=== PATIENT | male | born 1940 | race Caucasian/White ===

== ENCOUNTER 2016-07-17 13:53 | Inpatient (IN) | payer MEDICARE, OTHER ==
--- NOTE | ~2016-07-17 | DS ---
Discharge Summary [address] [place]. [address] NAME: VANCE REESE : 38 STATUS : ADM IN [facility]#: [id number] AGE: 75 ADM/REG DATE : 07/17/16 MR#: [id number] REPORT SERV DATE: 07/20/16 DICTATED BY: VANIA MORALES DATE: 07/20/16 REPORT STATUS : Draft TRANSCRIBED BY: MODMinoo DATE: 07/20/16 ADMISSION DATE: 07/17/2016 DISCHARGE DATE: 07/20/2016 REASON FOR ADMISSION: Dehydration, acute kidney injury, encephalopathy, and urinary tract infection. HISTORY OF PRESENT ILLNESS: Please refer to my history and physical dated 07/17/2016 for complete details regarding the patient's admission. In brief, the patient was admitted to the Hospitalist Service for management of his cystitis, toxic encephalopathy, acute kidney injury, and dehydration. HOSPITAL COURSE: The patient had an uncomplicated hospital course. The patient had a urinalysis done by home health. Urine culture came back as being positive for E coli. His stepdaughter who helps take care of him noticed that the patient was getting dehydrated and more and more confused and less interactive. He does have some baseline dementia that his behavior was not typical for him. He came in, lactic acid was 1.3. ER obtained a CT scan of his brain without contrast, which showed no acute infarction. CBC was fine. BMP showed a creatinine 1.14 with a normal troponin. The patient was started on IV fluids along with Ancef. With the help of IV fluids and Ancef, he became more and more interactive and he was back to his baseline. He did have significant torticollis. Physical Therapy had recommended rehab. He has reached maximal hospitalization and will be discharged to [facility] today in stable condition. Speech Therapy evaluated the patient and did a swallow evaluation and recommended a mechanical soft diet with chopped meat with gravy and thin liquids along with aspiration precautions. DISCHARGE DIAGNOSES: Acute cystitis secondary to E coli, now resolved. Toxic encephalopathy secondary to urinary tract infection and dehydration, now resolved. Alzheimer's dementia, on Aricept and Namenda. Mild acute kidney injury secondary to dehydration. DNR/DNI. PROCEDURES: Include CT scan of the head without contrast. DISCHARGE MEDICATIONS: Include Lipitor 10 mg at bedtime, donepezil 20 mg at bedtime, Namenda XR 28 mg daily, and Ceftin 500 mg twice a day for four days. This with chopped meats with gravy and thin liquids. Along with aspiration precautions. The patient will be discharged to [facility] for rehab. Spending over 30 minutes in discharge planning and coordination of care. DICTATED BY: MD HUEY Dowling/MENG Discharge Summary [address] [address] NAME: VANCE REESE : 38 STATUS : ADM IN [facility]#: [id number] AGE: 75 ADM/REG DATE : 07/17/16 MR#: [id number] REPORT SERV DATE: 07/20/16 DICTATED BY: VANIA MORALES DATE: 07/20/16 REPORT STATUS : Draft TRANSCRIBED BY: MENG DATE: 07/20/16 Vania Morales MD / [id number] CC: MD SHANNON Dowling AMY
--- NOTE | ~2016-07-17 | HP ---
History And Physical [id number] [facility] [place]. [address] NAME: VANCE REESE : 38 STATUS : ADM IN PAT#: [id number] AGE: 75 ADM/REG DATE : 07/17/16 MR#: [id number] REPORT SERV DATE: 07/17/16 DICTATED BY: RODNEY GONZALEZ DATE: 07/17/16 REPORT STATUS : Draft TRANSCRIBED BY: MODL DATE: 07/17/16 DATE OF ADMISSION: 07/17/2016 REASON FOR ADMISSION: Encephalopathy and urinary tract infection. PRIMARY CARE PROVIDER: Edilia Delcid at [facility]. CHIEF COMPLAINT: "My stepdad has been declining for the past month." HISTORY OF PRESENT ILLNESS: 75-year-old white male with a history of known Alzheimer dementia and hyperlipidemia, has been living at home with his and the stepdaughter has been trying to be very active caregiver. The patient is brought to the [facility] ER in the presence of the patient's stepdaughter who is the power of clay digger and has noted that the patient's mental status has declined in the past few weeks, may be the past month. She states that he normally is able to answer questions, sometimes not appropriately. He will make eye contact. He will recognize her and family members. However, she has been feeling that he has been not eating and drinking well becoming dehydrated and weaker with having difficulty taking care of him at home. They do have a home health service currently. The patient's daughter said that about two weeks ago, he had not been eating or drinking and was worried that he was becoming dehydrated, so she took him to the [facility] ER where they were unable to obtain a urinalysis but did give some fluids and sent him home. Home Health was arranged and the home health aide had noticed that his urine was becoming foul smelling and urine culture had been obtained on 07/12/2016, which showed over 100,000 E coli. The patient's stepdaughter says that he has been keeping his head in one position and has not been communicating as much and has been declining since the ER visit and that is what prompted her to come to the ER. She states that he had a temperature of around 99 degrees at most but again is not eating well and has urinary tract infection. Hospice was asked to admit for further evaluation. REVIEW OF SYSTEMS: As per HPI. Otherwise, 10-point systems reviewed and negative. PAST MEDICAL HISTORY: Alzheimer dementia, rather severe and worsening, and hyperlipidemia. PAST SURGICAL HISTORY: None. SOCIAL HISTORY: Lives at home with his and has several children and about seven grandchildren. He is a DNR, does not smoke or drink any alcohol. FAMILY HISTORY: Reviewed and noncontributory. ALLERGIES: NO KNOWN ALLERGIES. MEDICATIONS: Include Namenda, Aricept, and a statin. PHYSICAL EXAMINATION: History And Physical [address] [address] NAME: VANCE REEES : 38 STATUS : ADM IN [facility]#: [id number] AGE: 75 ADM/REG DATE : 07/17/16 MR#: [id number] REPORT SERV DATE: 07/17/16 DICTATED BY: RODNEY GONZALEZ DATE: 07/17/16 REPORT STATUS : Draft TRANSCRIBED BY: MENG DATE: 07/17/16 VITAL SIGNS: On exam, blood pressure is 132/67, heart rate is 100, sat 99% on 2 L, respirations 32. GENERAL: He is in no acute distress. He is alert to name, does not recognize his daughter currently, appears to be older than stated age. He has his head in a fixed position. Does not rotate his head. He can follow simple commands and can answer with one-word sentences or with simple words. HEENT: Normocephalic, atraumatic head. Head is locked in the right position. NECK: Not supple. Possible torticollis. CARDIAC: Regular rhythm with tachycardia. No murmurs, rubs, or gallops. PULMONARY: Diminished but clear to auscultation bilaterally. ABDOMEN: Soft, nontender, and nondistended. Positive bowel sounds. EXTREMITIES: Show no clubbing or cyanosis. There is no edema. NEUROLOGIC: Unable to lift up his upper extremity. He is able to wiggle his toes. He cannot rotate his head. PSYCHIATRIC: The patient is cooperative. Mood is appropriate. SKIN: Warm and dry. LABORATORY DATA: Lab show urine culture greater than 100,000 E coli. Chest x-ray has no acute process. BMP shows a creatinine 1.14, negative troponin. CBC shows white blood cell count 7.8. CT scan of the head without contrast is pending. EKG shows sinus rhythm with tachycardia and PVCs. IMPRESSION: 1. Acute cystitis. 2. Toxic encephalopathy secondary to cystitis. 3. Alzheimer's dementia. 4. Mild acute kidney injury secondary to dehydration. 5. DNR/DNI. PLAN: PT/OT evaluate and treat. Will likely need. Can start him on Ancef. He has already received a dose of Levaquin in the ER. Obtain blood cultures. IV fluids for dehydration, obtain a TSH and T4 along with a procalcitonin. DISPOSITION: The patient will likely be discharged to a rehab facility in about three to four days. HUEY/MENG Rodney Gonzalez MD / [id number] CC: Alex Martinez M.D.
[2016-07-17 14:25] LABS: BASOPHILS 0.4 %; BASOPHILS ABSOLUTE 0.03 10/3/uL (0.0-0.16); EOSINOPHILS 0 %; ER CBC TAT 0 Hrs 07 MinsNP; HEMATOCRIT 44.2 % (40.0-51.0); HEMOGLOBIN 14.6 g/dL (13.6-17.8); IMMATURE GRANULOCYTES 0.3 %; IMMATURE GRANULOCYTES ABSOLUTE 0.02 10/3/uL (0.0-0.11); LYMPHOCYTES 8.8 %; LYMPHOCYTES ABSOLUTE 0.69 10/3/uL (0.67-4.30); MANUAL DIFF NO %; MEAN CORPUSCULAR HEMOGLOB 30.2 pg (26.0-34.0); MEAN CORPUSCULAR VOLUME 91.5 fL (80-100); MEAN PLATELET VOLUME 9.5 fL (9.2-13.0); MONOCYTES ABSOLUTE 0.94 10/3/uL (0.21-1.20); NEUTROPHILS 78.5 %; NEUTROPHILS ABSOLUTE 6.13 10/3/uL (2.02-8.40); PLATELET COUNT 237 10/3/uL (150-400); RBC DISTRIBUTION WIDTH 13.3 % (12.0-16.0); RED CELL COUNT 4.83 10/6/uL (4.7-6.1); WHITE BLOOD CELLS 7.8 10/3/uL (4.5-10.5)
[2016-07-17 14:46] LABS: BUN (BLOOD UREA NITROGEN) 14 MG/DL (6-23); CALCIUM, SERUM 8.7 MG/DL (8.5-10.4); CHEST PAIN PROFILE TAT 0 Hrs 28 Mins; CHLORIDE, SERUM 105 MMOL/L (96-112); CO2 (CARBON DIOXIDE) 28 MMOL/L (24-34); CREATININE 1.14 MG/DL (0.70-1.30); GFR AFRICAN AMERICAN 72 ML/MIN (>=60); GFR NON AFRICAN AMERICAN 62 ML/MIN (>=60); GLUCOSE, SERUM 115 MG/DL (60-99); SODIUM, SERUM 140 MMOL/L (135-148); TROPONIN I <0.02 NG/ML (<0.05)
[2016-07-17 14:47] LABS: INTERNATIONAL NORMAL RATI 1.3 UNITS (-); PARTIAL THROMBO TIME 37.3 SEC (22.5-37.2); PROTIME (NOT ORD) 15.8 SEC (12.0-14.5)
[2016-07-17] MEDS ORDERED: NAMENXR28 PO (15:02)
[2016-07-17] MEDS ORDERED: DONEPEZIL (15:47)
[2016-07-17] MEDS ORDERED: [UNRECOGNIZED DRUG - REMARK] (15:51)
[2016-07-17 19:40] LABS: BUN (BLOOD UREA NITROGEN) 13 MG/DL (6-23); CALCIUM, SERUM 7.9 MG/DL (8.5-10.4); CHLORIDE, SERUM 107 MMOL/L (96-112); CO2 (CARBON DIOXIDE) 30 MMOL/L (24-34); CREATININE 0.91 MG/DL (0.70-1.30); FREE T4 1.58 NG/DL (0.76-1.46); GFR AFRICAN AMERICAN 95 ML/MIN (>=60); GFR NON AFRICAN AMERICAN 82 ML/MIN (>=60); GLUCOSE, SERUM 124 MG/DL (60-99); PHOSPHORUS, SERUM 2.5 MG/DL (2.5-4.5); POTASSIUM, SERUM 3.5 MMOL/L (3.5-5.3); SGOT(AST) 19 U/L (5-40); SGPT(ALT) 21 U/L (5-65); SODIUM, SERUM 142 MMOL/L (135-148); TOTAL BILIRUBIN 0.5 MG/DL (0-1.2); ULTRASENSITIVE TSH 0.801 MCIU/ML (0.358-3.740)
[2016-07-17 19:41] LABS: A/G RATIO 0.6 (0.7-1.9); ALBUMIN 2.1 G/DL (3.5-5.0); ALKALINE PHOSPHATASE 79 U/L (45-117); GLOBULIN 3.3 G/DL (2.5-4.1); TOTAL PROTEIN 5.4 G/DL (6.0-8.5)
[2016-07-17 20:33] LABS: PROCALCITONIN 0.55 ng/mL (<0.5)
[2016-07-18 07:34] LABS: BASOPHILS 0.1 %; BASOPHILS ABSOLUTE 0.01 10/3/uL (0.0-0.16); EOSINOPHILS 0 %; HEMOGLOBIN 13.4 g/dL (13.6-17.8); IMMATURE GRANULOCYTES 0.3 %; IMMATURE GRANULOCYTES ABSOLUTE 0.02 10/3/uL (0.0-0.11); LYMPHOCYTES 13.2 %; MEAN CORPUS HGB CONC 32.7 g/dL (32.0-36.0); MEAN CORPUSCULAR VOLUME 91.7 fL (80-100); MEAN PLATELET VOLUME 9.3 fL (9.2-13.0); MONOCYTES 10.4 %; MONOCYTES ABSOLUTE 0.71 10/3/uL (0.21-1.20); NEUTROPHILS ABSOLUTE 5.16 10/3/uL (2.02-8.40); PLATELET COUNT 217 10/3/uL (150-400); RBC DISTRIBUTION WIDTH 12.8 % (12.0-16.0); RED CELL COUNT 4.47 10/6/uL (4.7-6.1); WHITE BLOOD CELLS 6.8 10/3/uL (4.5-10.5)
[2016-07-18 07:35] LABS: MANUAL DIFF NO %
[2016-07-18 07:47] LABS: BUN (BLOOD UREA NITROGEN) 11 MG/DL (6-23); CALCIUM, SERUM 8.4 MG/DL (8.5-10.4); CHLORIDE, SERUM 111 MMOL/L (96-112); CO2 (CARBON DIOXIDE) 27 MMOL/L (24-34); CREATININE 0.78 MG/DL (0.70-1.30); GFR AFRICAN AMERICAN 102 ML/MIN (>=60); GFR NON AFRICAN AMERICAN 88 ML/MIN (>=60); GLUCOSE, SERUM 107 MG/DL (60-99); POTASSIUM, SERUM 3.6 MMOL/L (3.5-5.3); SODIUM, SERUM 143 MMOL/L (135-148)
[2016-07-18] MEDS ORDERED: NAMENXR28 PO (14:00)
[2016-07-18] MEDS ORDERED: LIPITOR10 PO (14:01)
[2016-07-18] MEDS ORDERED: ARICEPT10 PO (14:02)
== END 2016-07-20 17:55 | DRG 689 ==
LOC: ER 13:53 → 4SO 16:06 → 5SO 17:04
PROVIDERS: Emergency Medicine; Internal Medicine
DX: N30.00 Acute cystitis without hematuria (principal); G92 Toxic encephalopathy; N17.9 Acute kidney failure, unspecified; G30.0 Alzheimer's disease with early onset; F02.80 Dementia in other diseases classified elsewhere, unspecified severity, without behavioral disturbance, psychotic disturbance, mood disturbance, and anxiety; Z66 Do not resuscitate; E86.0 Dehydration; I49.3 Ventricular premature depolarization; E78.5 Hyperlipidemia, unspecified; Z79.899 Other long term (current) drug therapy; B96.20 Unspecified Escherichia coli [E. coli] as the cause of diseases classified elsewhere
CPT/HCPCS: 70450; 71010; 80048; 80053; 83605; 83735; 84100; 84145; 84439; 84443; 84484; 85025; 85610; 85730; 92610-GN; 93005; 96365; 97110-GP; 97116-GP; 97161-GP; 97165-GO; 99285; A9270-GY; G8978-CL-GP; G8979-CJ-GP; G8987-CK-GO; G8988-CJ-GO; G8996-CK-GN; G8997-CK-GN; G8998-CK-GN; J0690; J1956